=== PATIENT | male | born 1960 | race Caucasian/White ===

== ENCOUNTER → 2017-04-26 | Outpatient (CLI) | payer BC ==
[~2017-04-26] MED LIST: GADOBUTROL 10 MMOL/10 ML PFS ONE
== END | disposition home or self-care (01) ==
LOC: CFH 13:31
PROVIDERS: ATTEND Physician Assistant
DX: R42 Dizziness and giddiness (principal); H91.8X2 Other specified hearing loss, left ear; E55.9 Vitamin D deficiency, unspecified
CPT/HCPCS: 70553; A9585